=== PATIENT | female | born 1995 | race Hispanic/Latino ===

== ENCOUNTER 2019-06-26 20:30 | Emergency (ER) | payer OTHER, SELFPAY ==
[2019-06-26 20:54] VITALS: BP 117/75; PULSE 85; RESP 16; TEMP 36.4; O2SAT 98; BMI 27.4
--- NOTE | 2019-06-26 22:56 | ED_ITS ---
HPI - Skin/Abscess/Foreign Bdy General Chief complaint: Skin/Abscess/Foreign Body Stated complaint: cyst on neck bothering her Time Seen by Provider: 06/26/19 21:31 Source: patient Mode of arrival: Family Vehicle Limitations: no limitations History of Present Illness HPI narrative: 24-year-old female nonsmoker with benign medical history presents with a chief complaint of a painful cyst on the back of her neck. It has been there for quite some time but got larger over the past few days. She denies any fever or chills. She denies any numbness, tingling or weakness. She is otherwise well and free of complaint MD complaint: abscess/boil Onset (ago): day(s) Tetanus up to date: yes Location: neck Severity: mild Quality: aching Pain Consistency: constant Relieving factors: none Exacerbating factors: none Context: none Treatments prior to arrival: none Related Data Home Medications Medication Instructions Recorded Confirmed docusate sodium 240 mg PO BID #0 08/13/16 ibuprofen 800 mg PO TIDP PRN #0 08/13/16 oxycodone-acetaminophen [Percocet] 1 - 2 tab PO Q4HP PRN #0 08/13/16 Previous Rx's Medication Instructions Recorded cephalexin [Keflex] 500 mg PO BID #14 cap 02/09/17 hydrocodone-acetaminophen [[place]] 1 - 2 tab PO Q6H PRN #10 tab 02/09/17 metronidazole 500 mg PO Q12H #14 tab 02/09/17 doxycycline monohydrate 100 mg PO BID 10 Days #20 cap 06/27/19 Allergies Allergy/AdvReac Type Severity Reaction Status Date / Time amoxicillin [AMOXICILLIN] AdvReac Severe RESPIRATORY Verified 06/26/19 20:59 DISTRESS/ANAPYLAXIS Review of Systems Constitutional Constitutional: Denies chills, Denies fatigue, Denies fever(s), Denies frequent falls, Denies lethargy and Denies weakness Eyes Eyes: Denies change in vision, Denies eye discharge, Denies irritation and Denies loss of vision ENT Ears, Nose, Mouth, and Throat: Denies change in voice, Denies dizziness, Denies neck pain, Denies sore throat and Denies throat swelling Cardiovascular Cardiovascular: Denies chest pain, Denies irregular heart rhythm, Denies lightheadedness, Denies palpitations, Denies dyspnea, Denies dyspnea on exertion and Denies orthopnea Respiratory Respiratory: Denies cough, Denies dyspnea, Denies dyspnea on exertion and Denies wheezing Gastrointestinal Gastrointestinal: Denies abdominal pain, Denies change in bowel habits, Denies diarrhea, Denies nausea and Denies vomiting Genitourinary Genitourinary: Denies hematuria, Denies flank pain, Denies urinary incontinence and Denies urinary urgency Musculoskeletal Musculoskeletal: Denies back pain, Denies muscle weakness, Denies neck pain, Denies numbness and Denies tingling Integumentary/Breasts Skin/Breast: Denies pruritus, Reports erythema, Denies rash, Reports skin pain, Reports skin swelling and Denies wounds Neurologic Neurologic: Denies behavioral changes, Denies confusion, Denies dizziness, Denies frequent falls, Denies loss of vision, Denies numbness, Denies tingling and Denies weakness Psychiatric Psychiatric: Denies anxiety, Denies behavioral changes, Denies confusion, Denies depression, Denies homicidal ideation and Denies suicidal ideation Endocrine Endocrine: Denies fatigue, Denies flushing and Denies palpitations Hematologic/Lymphatic Hematologic/Lymphatic: Denies easy bruising Allergic/Immunologic Allergic/Immunologic: Denies urticaria, Denies throat swelling and Denies wheezing Patient History Social History Smoking Status: Current some day smoker tobacco type: vaping alcohol intake frequency: holidays/special occasions only Substance Use Type: does not use Exam Narrative Exam Narrative: GEN: AOx3 and in mild distress EYES: Pupils are equal, round, and reactive to light and accommodation. Extraoccular muscles are intact bilaterally. There is no subconjunctival hemorrhage or exudate. CHEST: Lungs are clear to auscultation bilaterally and free of wheezes, rales, or rhonchi. Heart rate is regular rhythm, there are no murmurs, clicks, rubs, or gallops. There is no chest wall tenderness. ABD: Abdomen is soft and nontender. There is no guarding or rebound. Bowel sounds are normal in all 4 quadrants. There is no mass or organomegaly. EXT: Full painless ROM of all extremities with no loss of sensation or strength. SKIN: Warm tender indurated lesion on posterior neck, no spontaneous drainage. 2x2cm Initial Vital Signs Initial Vital Signs: Vital Signs Temperature 97.5 F L 06/26/19 20:54 Pulse Rate 85 06/26/19 20:54 Respiratory Rate 16 06/26/19 20:54 Blood Pressure 117/75 06/26/19 20:54 Pulse Oximetry 98 06/26/19 20:54 Procedures Abscess I/D Site: neck Local Anesthetic: bupivacaine 0.5% Amount of anesthesia used (mL): 3 Technique: incised with #11 blade Amount of fluid expressed (mL): 4 Irrigation: No Packing used?: none Complications: pain Course Orders Ordered: Discontinued Medications Hydrocodone Bitart/Acetaminophen (Vicodin Prepack) 1 bottle MISC SEEINSTR ONE Stop: 06/27/19 00:25 Last Admin: 06/27/19 00:53 Dose: 1 bottle Documented by: ALFONZO Bupivacaine HCl (Sensorcaine 0.5% (Pf)) 5 ml SUBCUT NOW ONE Stop: 06/27/19 00:04 Vital Signs Vital signs: Vital Signs - 8 hr 06/27/19 00:52 Pulse Rate 89 Respiratory Rate 16 Blood Pressure [Left Arm] 112/69 Pulse Oximetry 98 Discharge Plan Departure Patient Disposition: Home Clinical Impression: Infected sebaceous cyst of skin Discharge Date/Time: 06/27/19 00:57 Instructions: DI for Epidermal Cyst Activity Restrictions/Additional Instructions: *You have been diagnosed with [ infected sebaceous cyst ] *What to do: *Take medications as directed *Follow up with your primary care provider in 2-3 days, call for an appointment. Let them know you were seen in the Emergency Department and that we ask that you be seen in follow up *Return to ER if you should have any new, worsening or concerning symptoms, such as [ ] Prescriptions: New doxycycline monohydrate 100 mg capsule 100 mg PO BID 10 Days Qty: 20 RF: 0 No Action oxycodone-acetaminophen [Percocet] 5 MG/325 MG tablet 1 - 2 tab PO Q4HP PRNQty: 0 RF: 0 ibuprofen 800 MG tablet 800 mg PO TIDP PRNQty: 0 RF: 0 docusate sodium 250 MG capsule 240 mg PO BID Qty: 0 RF: 0 metronidazole 500 MG tablet 500 mg PO Q12H Qty: 14 RF: 0 cephalexin [Keflex] 500 MG capsule 500 mg PO BID Qty: 14 RF: 0 hydrocodone-acetaminophen [[place]] 5 MG/325 MG tablet 1 - 2 tab PO Q6H PRNQty: 10 RF: 0
[2019-06-27 00:52] VITALS: BP 112/69; PULSE 89; RESP 16; O2SAT 98
[2019-06-27] MEDS: HYDROCODONE/ACET 5/325 PREPACK 1 BOTTLE MISC (00:53)
== END 2019-06-27 00:57 | disposition home or self-care (01) ==
PROVIDERS: Emergency Provider Emergency Medicine
DX: L72.3 Sebaceous cyst (principal)
CPT/HCPCS: 10060; 99282; 99283

== ENCOUNTER → 2019-12-14 18:36 | Outpatient (CLI) | payer OTHER, SELFPAY ==
--- NOTE | 2019-12-14 18:38 | DI.US.S_ITS ---
PROCEDURE: US OB >= 14 WEEKS FETUS INDICATIONS: 20 WEEK ANATOMY SCAN OUTSIDE/PRIOR DATING DATA: Last menstrual period (LMP): 06/25/2019 . LMP-based estimated date of delivery (DAVID): 04/01/2020. First dating scan (date and location): 12/14/2019. Estimated date of delivery (DAVID) from first dating scan: 03/30/2020. TECHNIQUE: Real-time scanning was performed of the fetus, with image documentation and biometric measurements. Endovaginal scanning: Multiple 4 and COMPARISON: None. FINDINGS: General: A single living intrauterine gestation is present. Presentation: Vertex. Placenta: Placental position is anterior, without previa. Amniotic fluid index: 25.3 cm, normal range is 5-24 cm; largest pocket is 7.5 cm. heart rate: 144 beats per minute. Maternal cervical canal: 3.1 cm long. Normal lower limit is 2.5 cm. biometrics: Biparietal diameter: 25 weeks 2 days Head circumference: 25 weeks 1 day Abdominal circumference: 25 weeks 0 day Femur length: 24 weeks 3 days Estimated gestational age from initial scan: 24 weeks 3 days. Composite gestational age from present scan: 24 weeks 5 days Estimated weight and percentile: 742 gm; 61% Measurement variability for biometric dating: +/- 7 days from 14 weeks to 15 weeks 6 days gestation, +/- 10 days from 16 weeks to 21 weeks 6 days gestation, +/- 2 weeks from 22 weeks to 27 weeks 6 days gestation, +/- 3 weeks for 28 weeks gestation or later. weight reference: 4500 g or EFW >90/95% is considered macrosomia or large for gestational age. EFW <10% is small for gestational age. EFW 5% or less is considered intra-uterine growth restriction. Anatomic survey: Neuro: Ventricles are non-dilated at less than 10 mm. Cisterna magna is normal at 3-11 mm. Cerebellum is normal in size and morphology. Nuchal skin fold: Normal at less than 6 mm between 14-21 weeks gestational age. Face: Nose and lips, facial profile are normal. Spine: No evidence for spina bifida. Heart: 4-chambered heart is present, with normal ventricular outflow tracts. Diaphragm: Diaphragm is intact. Stomach: Left-sided stomach is present. Kidneys: No hydronephrosis. Normal is less than 5 mm in 2nd trimester, less than 7 mm in 3rd trimester. Cord: 3-vessel cord has orthotopic insertion. Bladder: Normal in size. Extremities: All 4 extremities identified. IMPRESSION: 1. A single living intrauterine gestation with an estimated gestational age of 24 weeks 3 days corresponding to ultrasound DAVID 03/30/2020. 2. Elevated LAUREN suggesting polyhydramnios. 3. Otherwise normal anatomic survey. Dictated by: Ban Carson M.D. on 12/15/2019 at 9:42 Approved by: Ban Carson M.D. on 12/15/2019 at 9:48
== END ==
PROVIDERS: PCP General Practice; Referring Provider Family Medicine; Visit Provider Family Medicine
DX: Z34.82 Encounter for supervision of other normal pregnancy, second trimester (principal); Z3A.24 24 weeks gestation of pregnancy
CPT/HCPCS: 76811

== ENCOUNTER → 2019-12-30 14:40 | Outpatient (CLI) | payer OTHER, SELFPAY ==
--- NOTE | 2019-12-30 14:41 | DI.US.S_ITS ---
PROCEDURE: US OB LIMITED INDICATIONS: POLYHYDRAMNIOS OUTSIDE/PRIOR DATING DATA: Last menstrual period (LMP): 06/25/19. LMP-based estimated date of delivery (DAVID): 04/01/20. First dating scan (date and location): 12/14/19. Estimated date of delivery (DAVID) from first dating scan: 03/30/20. TECHNIQUE: Real-time scanning was performed of the fetus, with image documentation and biometric measurements. Endovaginal scanning: Not performed COMPARISON: None. FINDINGS: General: A single living intrauterine gestation is present. Presentation: Vertex Placenta: Placental position is anterior, without previa. Amniotic fluid index: 24.2 cm, normal range is 5-24 cm. heart rate: 150 beats per minute. Maternal cervical canal: 3.6 cm long. Normal lower limit is 2.5 cm. Measurement variability for biometric dating: +/- 7 days from 14 weeks to 15 weeks 6 days gestation, +/- 10 days from 16 weeks to 21 weeks 6 days gestation, +/- 2 weeks from 22 weeks to 27 weeks 6 days gestation, +/- 3 weeks for 28 weeks gestation or later. weight reference: 4500 g or EFW >90/95% is considered macrosomia or large for gestational age. EFW <10% is small for gestational age. EFW 5% or less is considered intra-uterine growth restriction. Other: Not applicable. IMPRESSION: Single live intrauterine with fetus in vertex presentation. heart rate is 150 beats per minute. LAUREN equals 24.2 cm and is consistent with borderline polyhydramnios. Dictated by: Gianni Granados M.D. on 12/30/2019 at 17:36 Approved by: Gianni Granados M.D. on 12/30/2019 at 17:37
[2019-12-30 15:30] LABS: Add Manual Diff / Slide Review NO; Basophils Absolute Auto 0 /uL (0-100); Basophils Percent Auto 0.4 % (0-2); Eosinophils Absolute Auto 100 /uL (0-450); Eosinophils Percent Auto 0.8 % (2-4); Hematocrit 31.4 % (36-46); Hemoglobin 10.5 g/dL (12.0-16.0); Lymphocytes Absolute Auto 2300 /uL (1100-4500); Lymphocytes Percent Auto 20.7 % (25-40); Mean Corpuscular HGB Conc 33.5 % (30-36); Mean Corpuscular Hemoglobin 29.3 PG (26-34); Mean Corpuscular Volume 87.5 fL (80-100); Monocytes Absolute Auto 500 /uL (0-900); Monocytes Percent Auto 4.4 % (3-14); Neutrophils Absolute Auto 8200 /uL (1500-7000); Neutrophils Percent Auto 73.7 % (50-75); Platelet Count 327 X10^3/uL (150-400); Red Blood Cell Count 3.59 X10^6/uL (4.0-5.2); Red Cell Distribution Width 13.9 % (11.6-14.8); White Blood Cell Count 11.1 X10^3/uL (4.5-11.0)
[2019-12-30 17:37] LABS: Appearance Urine UA CLEAR; Bilirubin Urine UA NEGATIVE (NEGATIVE); Color Urine UA YELLOW; Glucose Urine UA NEGATIVE (Negative); Ketones Urine UA NEGATIVE (NEGATIVE); Leukocyte Esterase Urine UA TRACE (NEGATIVE); Nitrite Urine UA NEGATIVE (Negative); Occult Blood Urine UA TRACE-LYSED (Negative); Protein Urine UA NEGATIVE (Negative); Specific Gravity Urine UA <=1.005 (1.000-1.035); Urobilinogen Urine UA 0.2 E.U./dL (0.2)
[2019-12-30 17:38] LABS: Bacteria Urine None Seen; RBC Urine None Seen (0-5/HPF)
[2019-12-30 17:52] LABS: Culture Indicated Urine Cult Not Indicated; Squamous Epithelial Cell Urine 1-5 /HPF (0-5/HPF); WBC Urine 0-1/HPF (0-5/HPF)
[2019-12-31 04:39] LABS: RPR Screen Non Reactive (Non Reactive)
[2019-12-31 08:09] LABS: Varicella IgG Antibody <135 index (Immune >165)
[2020-01-02 19:27] LABS: Hepatitis B Surface Antigen NEGATIVE s/c (NEGATIVE); Rubella Antibody IgG 12.4 IU/mL (>15)
[2020-01-02 19:31] LABS: HIV 1 & 2 Ab/Ag 4th Gen Combo NEGATIVE (NEGATIVE); Hep C Virus Ab w/Reflex Quant NEGATIVE s/c (NEGATIVE)
== END ==
LOC: US 14:41
PROVIDERS: PCP Family Medicine; Referring Provider Family Medicine; Visit Provider Family Medicine
DX: O40.2XX0 Polyhydramnios, second trimester, not applicable or unspecified (principal); Z3A.27 27 weeks gestation of pregnancy
CPT/HCPCS: 36415; 76815; 80055; 81003; 81015; 86787; 86803; 86850; 86900; 86901; 87086; 87389

== ENCOUNTER → 2020-01-17 12:57 | Outpatient (CLI) | payer OTHER, SELFPAY ==
[2020-01-17 14:45] LABS: GTT (PREG) 1 Hour PP 50gm Dose 135 mg/dL (76-139)
== END ==
PROVIDERS: PCP Family Medicine; Referring Provider Family Medicine; Visit Provider Family Medicine
DX: Z34.90 Encounter for supervision of normal pregnancy, unspecified, unspecified trimester (principal)
CPT/HCPCS: 36415; 82950

== ENCOUNTER → 2020-01-31 10:40 | Outpatient (CLI) | payer OTHER, SELFPAY ==
--- NOTE | 2020-01-31 10:41 | DI.US.S_ITS ---
PROCEDURE: US OB LIMITED INDICATIONS: POLYHYDRAMNIOS, GROWTH OUTSIDE/PRIOR DATING DATA: Last menstrual period (LMP): 06/25/19. LMP-based estimated date of delivery (DAVID): 04/01/20. First dating scan (date and location): 12/14/19. Estimated date of delivery (DAVID) from first dating scan: 03/30/20. TECHNIQUE: Real-time scanning was performed of the fetus, with image documentation and biometric measurements. Endovaginal scanning: Not performed COMPARISON: [facility], OB LIMITED, 12/30/2019, 14:48. FINDINGS: General: A single living intrauterine gestation is present. Presentation: Vertex. Placenta: Placental position is anterior, without previa. Amniotic fluid index: 15.6 cm, normal range is 5-24 cm. (previously 24.2 cm). Largest pocket 5.9 cm heart rate: 155 beats per minute. Maternal cervical canal: 3.3 cm long. Normal lower limit is 2.5 cm. biometrics: Biparietal diameter: 8.1 cm, 32 weeks 4 days Head circumference: 29.6 cm, 32 weeks 6 days Abdominal circumference: 27.0 cm, 31 weeks one day Femur length: 6.2 cm, 33 weeks 3 days Estimated gestational age from initial scan: 31 weeks 4 days Composite gestational age from present scan: 32 weeks 2 days Estimated weight and percentile: 1847 g, 47th percentile Measurement variability for biometric dating: +/- 7 days from 14 weeks to 15 weeks 6 days gestation, +/- 10 days from 16 weeks to 21 weeks 6 days gestation, +/- 2 weeks from 22 weeks to 27 weeks 6 days gestation, +/- 3 weeks for 28 weeks gestation or later. weight reference: 4500 g or EFW >90/95% is considered macrosomia or large for gestational age. EFW <10% is small for gestational age. EFW 5% or less is considered intra-uterine growth restriction. Other: Not applicable. IMPRESSION: Single living intrauterine fetus in vertex presentation Normal LAUREN as above Expected interval growth Dictated by: Thai Delgado M.D. on 01/31/2020 at 15:48 Approved by: Thai Delgado M.D. on 01/31/2020 at 15:51
== END ==
PROVIDERS: PCP Family Medicine; Referring Provider Family Medicine; Visit Provider Family Medicine
DX: O40.3XX0 Polyhydramnios, third trimester, not applicable or unspecified (principal); Z3A.32 32 weeks gestation of pregnancy
CPT/HCPCS: 76815

== ENCOUNTER → 2020-03-08 09:26 | Outpatient (CLI) | payer OTHER, SELFPAY ==
[2020-03-09 12:41] LABS: Strep Grp B PCR NEG for Grp B Strep
== END ==
LOC: LAB 09:27
PROVIDERS: PCP Family Medicine; Visit Provider Family Medicine
DX: Z34.90 Encounter for supervision of normal pregnancy, unspecified, unspecified trimester (principal); Z3A.36 36 weeks gestation of pregnancy
CPT/HCPCS: 87653

== ENCOUNTER → 2020-04-04 09:22 | Outpatient (CLI) | payer OTHER, SELFPAY ==
[2020-04-05 04:12] LABS: COVID19 Sendout Not Detected (Not Detect)
== END ==
PROVIDERS: PCP Family Medicine; Visit Provider Physician Assistant
DX: Z11.59 Encounter for screening for other viral diseases (principal)
CPT/HCPCS: 87635

== ENCOUNTER 2020-04-06 07:10 | Inpatient (IN) | payer OTHER, SELFPAY ==
[2020-04-06] MEDS: LACTATED RINGERS 1,000 ML 100 ML IV ×3 (07:40→19:26)
--- NOTE | 2020-04-06 08:02 | P.HPOB_ITS ---
OB HPI Date/Time Date of admission: 04/06/20 Date Patient Seen: 04/06/20 Time Patient Seen: 07:20 History of Present Condition Chief complaint: Induction : 1 Para: 0 Estimated Date of Delivery: 04/01/20 Estimated Gestational Age (weeks): 40w5d Narrative: Alexandra Izaguirre is a 24 year old at 40 weeks and 5 days gestation here for post-dates induction. was complicated by mild polyhydramnios on 20 week ultrasound which resolved on follow-up ultrasound. No gestational diabetes or hypertension. Indications Indication for induction OB: post dates History of Present care: good care, initiated at week # (24 (initial care at [facility] until 12 weeks followed by lapse in care until 24 weeks)), number of visits (10) and pounds weight gain (0) Dating criteria: LMP confirmed by 1st trimester US Ultrasounds: abnormal US findings (See below) Abnormal ultrasound findings: Mild polyhydramnios on 20 week ultrasound, follow- up ultrasound normal. Normal anatomy. Obstetrical complications: none Medical complications: none Preadmission Labs Blood type: B (+) positive -: Antibody screen: negative, GBS status: negative, HBsAG: negative, HIV: negative and RPR/VDLR: negative -: Rubella: not immune and Varicella: not immune HCT: 31.4 HCAB: negative Urine: Three or more colony types 1 hr GTT: 135 Evaluation Evaluation Baseline heart rate: 130 Variability: Moderate (11-25) monitor accelerations: Present monitor decelerations: Absent Category of Tracing: Reactive Cervical dilation (cm): 2 Cervical effacement (%): 75 station: -2 [facility] Medical History Migraines (Acute) Surgical History Anesthesia (Resolved) H/O wisdom tooth extraction (Acute) Hx of appendectomy (Acute ~2014) Sebaceous cyst (Acute ~2018) Family History Mother Migraines Grandmother No problems noted. Grandfather AA (alcohol abuse) Father Diabetes mellitus Grandfather Diabetes mellitus Grandmother Diabetes mellitus Family/Other Diabetes mellitus Social History marital status: household members: spouse pets and animals: Yes (X 2 dogs and X 1 cat : aware) education level: high school occupational status: unemployed current occupational exposures/hazards: No jasmina/sikhism: Episcopalian special jasmina needs: No Smoking Status: Former smoker Tobacco: How many years used: 1 second hand exposure: No alcohol intake: former substance use type: does not use Meds Home Medications and Allergies Home Medications Medication Instructions Recorded Confirmed Type prenat.vits,charis,[id number] 1 tab PO DAILY 12/13/19 04/06/20 History Allergies Allergy/AdvReac Type Severity Reaction Status Date / Time amoxicillin [AMOXICILLIN] AdvReac Severe RESPIRATORY Verified 04/04/20 09:21 DISTRESS/ANAPYLAXIS Review of Systems Review of Systems ROS: Yes All systems reviewed with the patient and are negative except as otherwise documented Exam Vital Signs (past 8 hours): Temperature 36.3? blood pressure 102/57 heart rate 82 Const General: healthy appearing and comfortable HENMT Head: normal to inspection Ears: hearing grossly normal bilaterally Nose: external nose normal Face and sinus: normal facial exam Mouth: oral mucosae normal Eyes General: appearance normal, both eyes and all related structures Neck Neck: normal visual inspection Resp Effort & Inspection: normal respiratory effort Auscultation: clear to auscultation bilaterally Cardio Rate: regular rate Rhythm: regular rhythm Heart Sounds: no murmurs GI Other: Gravid External Female Exam: normal external appearance Manual OB Exam: dilated 2, effaced 75% and station -2 Presentation: vertex Estimated Weight (lbs): 7 Back/Spine/Pelvis Back: normal to inspection Skin General: no rashes or lesions noted Extrem General: normal to inspection and no pedal edema Objective Labs Result Diagrams: 04/06/20 07:40 Assessment and Plan Assessment and Plan Assessment and Plan narrative: 24-year-old at 40 weeks and 5 days gestation here for post-dates induction with Pitocin. Rh positive, GBS negative. Pre induction COVID-19 testing also negative. Plan Pitocin per protocol Epidural upon request No indication for GBS prophylaxis
[2020-04-06] MEDS: OXYTOCIN PREMIX 30 UNIT/500 ML PLAST..BAG IV (08:38)
[2020-04-06 08:42] VITALS: BP 116/68
[2020-04-06 08:56] LABS: Add Manual Diff / Slide Review NO; Basophils Absolute Auto 0 /uL (0-100); Basophils Percent Auto 0.3 % (0-2); Eosinophils Absolute Auto 100 /uL (0-450); Eosinophils Percent Auto 0.9 % (2-4); Hematocrit 31.9 % (36-46); Hemoglobin 10.7 g/dL (12.0-16.0); Lymphocytes Absolute Auto 3000 /uL (1100-4500); Lymphocytes Percent Auto 29.2 % (25-40); Mean Corpuscular HGB Conc 33.3 % (30-36); Mean Corpuscular Hemoglobin 28.1 PG (26-34); Mean Corpuscular Volume 84.3 fL (80-100); Monocytes Absolute Auto 600 /uL (0-900); Monocytes Percent Auto 5.9 % (3-14); Neutrophils Absolute Auto 6400 /uL (1500-7000); Neutrophils Percent Auto 63.7 % (50-75); Platelet Count 311 X10^3/uL (150-400); Red Blood Cell Count 3.79 X10^6/uL (4.0-5.2); White Blood Cell Count 10.1 X10^3/uL (4.5-11.0)
--- NOTE | 2020-04-06 13:02 | PM.OBPNLAB ---
Date/Time Date Patient Seen: 04/06/20 Time Patient Seen: 12:30 Pain Control Pain control: tolerating well Pelvic Exam Dilation (cm): 3 Effacement (%): 75 station: -1 Contractions Pitocin rate (mU/min): 12 Contraction frequency (min): 3 Contraction pattern: Regular Contraction intensity: Mild Status status: Category l Heart Rate Baseline: 130 Monitor Accelerations: Present Monitor Decelerations: Absent Monitor Variability: Moderate Assessment and Plan Assessment: induction ongoing Plan: continuous present management
[2020-04-06] MEDS: fentaNYL 100 MCG/2 ML INJ 50 MCG IV (15:04)
--- NOTE | 2020-04-06 17:07 | PM.OBPNLAB ---
Date/Time Date Patient Seen: 04/06/20 Time Patient Seen: 17:00 Pain Control Pain control: tolerating well (Desires epidural but is coping well) Pelvic Exam Dilation (cm): 7 Effacement (%): 100 station: -1 Amniotic membrane status: Bulging Contractions Pitocin rate (mU/min): 15 Contraction frequency (min): 2 Contraction pattern: Regular Contraction intensity: Strong/Firm Status status: Category l Heart Rate Baseline: 140 Monitor Accelerations: Present Monitor Decelerations: Absent Monitor Variability: Moderate Assessment and Plan Assessment: active labor Plan: continuous present management Comments: Epidural now. Will AROM after epidural.
--- NOTE | 2020-04-06 18:50 | PM.OBPNLAB ---
Date/Time Date Patient Seen: 04/06/20 Time Patient Seen: 18:45 Pain Control Pain control: tolerating well and epidural Pelvic Exam Dilation (cm): 9 Effacement (%): 100 station: -1 Amniotic membrane status: Ruptured (Clear fluid) Contractions Pitocin rate (mU/min): 10 Contraction frequency (min): 2 Contraction pattern: Regular Contraction intensity: Strong/Firm Status status: Category ll Heart Rate Baseline: 140 Monitor Accelerations: Absent Monitor Decelerations: Absent Monitor Variability: Moderate Assessment and Plan Assessment: active labor Plan: continuous present management Comments: Good progress. AROM clear fluid. Continue pitocin.
--- NOTE | 2020-04-06 21:48 | PM.OBPNLAB ---
Date/Time Date Patient Seen: 04/06/20 Time Patient Seen: 21:30 Pain Control Pain control: tolerating well and epidural Pelvic Exam Dilation (cm): 10 Effacement (%): 100 station: +1 Amniotic membrane status: Ruptured (Clear fluid) Contractions Pitocin rate (mU/min): 8 Contraction frequency (min): 2 Contraction pattern: Regular Contraction intensity: Strong/Firm Status status: Category ll Heart Rate Baseline: 140 Monitor Accelerations: Absent Monitor Decelerations: Early Monitor Variability: Moderate Assessment and Plan Assessment: active labor Plan: continuous present management Comments: Patient is complete and +1. Good pain control with epidural. Begin pushing.
--- NOTE | 2020-04-07 01:27 | PM.OBPRVD ---
Labor & Delivery Delivery date: 04/06/20 Intrapartal events: Intolerance Induction method: per pitocin protocol Delivery augmentation: rupture of membranes Delivery monitor: external FHT Route of delivery: L&D Laceration Description: Vaginal - 2nd Degree Delivery repair: chromic Estimated blood loss (mL): 300 Anesthesia type: Epidural Complications: Resuscitation of the with positive pressure ventilation within the first 5 minutes of life. Narrative: VAGINAL DELIVERY NOTE BRIEF HISTORY: Patient is a 24-year-old at 40 weeks and 5 days gestation who gave on 04/06/20 at 11:54 p.m.. DAVID: 04/01/20 Hospital problems: 40 weeks of STAGE I: Labor Patient came in for induction with Pitocin. She progressed into active labor at 3:00 p.m. on 04/06/20 and 1 on to receive an epidural for pain control. Artificial rupture membranes occurred at 6:40 p.m. with clear fluid. Patient was complete at 9:30 p.m.. heart tones were category 1 and 2 throughout stage I. STAGE II: Delivery Patient was complete at 9:30 p.m. and began pushing at 9:38 p.m.. heart tones were category 2 throughout stage II due to recurrent variable verses late decelerations down to the 90s. Decelerations appeared sharp as seen with variables however placement was after contractions. Variability remained moderate between decelerations. Patient was making progress with pushing however given recurrent decelerations, Dr. Brito was consulted for possible forceps delivery. Patient continued to push while preparing for forceps and ultimately was able to deliver unassisted. Spontaneous vaginal delivery occurred at 11:54 p.m.. Presentation was vertex and SOLE. There was a very tight nuchal cord which was clamped and cut on the perineum. was briefly placed on mother's abdomen then taken to the warmer due to poor tone and respiratory effort. Initial heart rate was over 100 however infant continued with poor respiratory effort. Initial attempts with PPV were unsuccessful and heart rate went down to the 70s. After repositioning PPV was effective with rapid rise in the heart rate and oxygen saturations. PPV was discontinued after less than it. 1 minutes was 4, five-minute 7 and 10 minutes 9. STAGE III: Placenta/Cord Placenta delivered spontaneously at 11:57 p.m. after active management and appeared intact with a three-vessel cord. A small second-degree midline vaginal laceration was repaired in the usual fashion with 3-0 Vicryl. A triangular flap vaginal laceration was also repaired with good hemostasis. Fundus was firm below umbilicus after delivery. Hemostasis assured. EBL: 300 mL. Needle and sponge counts were correct. The vagina was inspected and no items were left in situ. Patient was doing well was doing well with her and has been at bedside. Infant was given to mother for skin to skin dispo for 1 hour of life. He continued to do well after delivery. Baby 1: gender: Male Presentation: vertex position: Right Occiput Anterior cord vessel description: Nuchal Cord (Tight, cut on the perineum) score (1 min): 4 score (5 min): 7 score (10 min): 9
[2020-04-07] MEDS: IBUPROFEN 600 MG TABLET PO ×3 (05:06→19:49)
[2020-04-07] MEDS: DOCUSATE 100 MG CAPSULE PO ×2 (08:19→19:50)
[2020-04-07] MEDS: PRENATAL VIT,CALC/IRON/FOLIC 1 TABLET 1 TAB PO (08:19)
--- NOTE | 2020-04-07 10:23 | P.PNOB_ITS ---
Subjective - OB Subjective Patient comments: no complaints [place] baby status: doing well feeding status: exclusively breast feeding Date Patient Seen: 04/07/20 Time Patient Seen: 10:27 Interval history: Patient has no complaints this morning. is going very well and infant is doing well. She is ambulating, and eating without difficulty. Vaginal bleeding is moderate. Pain is tolerable. Exam Vital Signs (past 8 hours): Temperature 97.9 Blood pressure 105/68 Heart rate 92 respirations 17 Narrative Exam Narrative: General: Awake and alert, no acute distress. HEENT: NCAT, EOMI, moist oral mucosa CV: Regular rate and rhythm, no murmurs, rubs or gallops Lungs: CTAB, no wheezes, rales, or rhonchi Abdomen: Soft, nontender; bowel tones active; uterus firm 1 cm below umbilicus Extremities: Warm, no edema, 2+ pedal pulses bilaterally Objective Labs Result Diagrams: 04/06/20 07:40 Assessment & Plan Assessment and Plan (1) Spontaneous vaginal delivery: Status: Acute (2) 40 weeks gestation of : Status: Acute Plan day: 1 plan OB: routine care Time Spent With Patient Time: Total time spent is greater than 50% in coordination of care (as documente d) at patient's floor/unit and/or counseling patient: Time with patient: less than 15 minutes
[2020-04-07 13:48] VITALS: TEMP 37.1
[2020-04-08] MEDS: ACETAMINOPHEN 325 MG TABLET 650 MG PO (00:55)
[2020-04-08] MEDS: IBUPROFEN 600 MG TABLET PO (02:59)
[2020-04-08] MEDS: DERMOPLAST SPRAY 20% 60 ML 1 SPRAY TOP (03:00)
[2020-04-08 06:05] LABS: Add Manual Diff / Slide Review NO; Basophils Absolute Auto 100 /uL (0-100); Basophils Percent Auto 0.8 % (0-2); Eosinophils Absolute Auto 100 /uL (0-450); Eosinophils Percent Auto 0.9 % (2-4); Hematocrit 28.3 % (36-46); Hemoglobin 9.6 g/dL (12.0-16.0); Lymphocytes Absolute Auto 4900 /uL (1100-4500); Lymphocytes Percent Auto 30.9 % (25-40); Mean Corpuscular HGB Conc 33.9 % (30-36); Mean Corpuscular Hemoglobin 28.5 PG (26-34); Monocytes Absolute Auto 700 /uL (0-900); Monocytes Percent Auto 4.6 % (3-14); Neutrophils Absolute Auto 10000 /uL (1500-7000); Neutrophils Percent Auto 62.8 % (50-75); Platelet Count 266 X10^3/uL (150-400); Red Blood Cell Count 3.37 X10^6/uL (4.0-5.2); Red Cell Distribution Width 14.2 % (11.6-14.8); White Blood Cell Count 15.9 X10^3/uL (4.5-11.0)
[2020-04-08] MEDS: DOCUSATE 100 MG CAPSULE PO (08:26)
[2020-04-08] MEDS: PRENATAL VIT,CALC/IRON/FOLIC 1 TABLET 1 TAB PO (08:26)
--- NOTE | 2020-04-08 08:51 | PM.OBDS.1 ---
Discharge Providers Provider Date of admission: 04/06/20 07:10 Discharge Date: 04/08/20 Primary care physician: Alice Valadez DO Consults: 04/08/20 01:25 Consult to Water Mechanic Routine Comment: Discharge provider: Alice Valadez DO Summary Hospital Course Date Patient Seen: 04/08/20 Time Patient Seen: 08:20 Procedures: Spontaneous vaginal Hospital Course: Patient is a 24 year after spontaneous vaginal delivery on 04/06/20 at 11:54 p.m.. Second stage of labor was complicated by recurrent decelerations with pushing. Dr. Brito was consulted for possible forceps delivery however patient was able to deliver without assistance. There was a tight nuchal cord at the time of delivery which was cut at the perineum. Infant had poor respiratory effort and tone so was taken to the warmer after . Ultimately he responded to PPV and was transitioned to mother before 1 hour of life. Remainder of his course was uncomplicated. course uncomplicated as well. Patient was ambulating, voiding, eating and passing flatus. Pain well controlled with Tylenol and ibuprofen only. Vaginal bleeding was moderate. Breast-feeding was going very well at the time of discharge. Patient was advised to call for fevers, severe pain or bleeding through more than a pad an hour. She will follow-up in clinic in 6 weeks. Peripartum Data Delivery Method: Natural Vaginal Laceration Description: Vaginal - 2nd Degree complications: none 1: Gender: Male Disposition of : home Discharge Diagnosis (1) Spontaneous vaginal delivery: Status: Acute (2) 40 weeks gestation of : Status: Acute Status at Discharge Functional status at discharge: independent ambulation Overall status at discharge: patient is progressing back to baseline Time Spent with Patient Time attestation: Total time spent providing and/or coordinating discharge services: Time spent: Less than 30 minutes Objective Labs Result Diagrams: 04/08/20 05:53 Labs: Laboratory Results - last 24 hr 04/08/20 05:53 WBC 15.9 H D RBC 3.37 L Hgb 9.6 L Hct 28.3 L MCV 84.0 MCH 28.5 MCHC 33.9 RDW 14.2 Plt Count 266 Neut % (Auto) 62.8 Lymph % (Auto) 30.9 [place] % (Auto) 4.6 Eos % (Auto) 0.9 L Baso % (Auto) 0.8 Neut # (Auto) 05232 H Lymph # (Auto) 4900 H [place] # (Auto) 700 Eos # (Auto) 100 Baso # (Auto) 100 Exam Vital Signs (past 8 hours): Temperature 97.3? blood pressure 111/72 heart rate 72 respirations 17 Narrative Exam Narrative: General: Awake and alert, no acute distress. HEENT: NCAT, EOMI, moist oral mucosa CV: Regular rate and rhythm, no murmurs, rubs or gallops Lungs: CTAB, no wheezes, rales, or rhonchi Abdomen: Soft, nontender; bowel tones active; uterus firm 1 cm below umbilicus Extremities: Warm, no edema, 2+ pedal pulses bilaterally Discharge Plan Discharge Plan Patient Disposition: Home Discharge orders & Medications Prescriptions: New Dermoplast (with menthol) 20-0.5 % Aerosol 1 spray topical Q1HR PRN (Reason: perineal pain) 30 Days RF: 0 docusate sodium [DOK] 100 mg Capsule 100 mg PO BID Qty: 60 RF: 0 ibuprofen 600 mg Tablet 600 mg PO Q6HR PRN (Reason: Pain, Mild (1-3)) Qty: 30 RF: 0 [id number]-L-Qcsnbx Cream 1 applic topical PRN PRN (Reason: Tenderness) 30 Days RF: 0 Continued prenat.vits,charis,cla-dsbs-tsttr Tablet 1 tab PO DAILY RF: 0 Follow up/Referrals: Alice Valadez DO [Primary Care Provider] - 6 Weeks (Pt. will call for appointment on Thursday) Diet/Activity/Treatments Activity: pelvic rest, nothing per vagina Skin/Wound/Dressing Care Report to your healthcare provider any signs of infection, such as:: chills, fever, night sweats, increased pain, unusual drainage and unusual redness Visit Report/Discharge Packet Stand Alone Forms: Discharge: Care Visit Report Forms: Patient Portal/API, Stroke Signs & Symptoms Discharge Data Primary Care Provider: Alice Valadez
[2020-04-08 09:10] VITALS: BP 121/66; PULSE 82; RESP 16; TEMP 36.8
== END 2020-04-08 11:15 | disposition home or self-care (01) | DRG 807 ==
PROVIDERS: Admitting Provider Family Medicine; PCP Family Medicine; Referring Provider Family Medicine; Visit Provider Family Medicine
DX: O48.0 Post-term pregnancy (principal); Z37.0 Single live birth; Z3A.40 40 weeks gestation of pregnancy; O70.1 Second degree perineal laceration during delivery; O76 Abnormality in fetal heart rate and rhythm complicating labor and delivery; O69.1XX0 Labor and delivery complicated by cord around neck, with compression, not applicable or unspecified
CPT/HCPCS: 01967; 36415; 59410; 85025; 86850; 86900; 86901; G0379; J2590; J3010